=== PATIENT | female | born 1980 | race Caucasian/White ===

== ENCOUNTER 2024-06-23 19:04 | Emergency (ER) | payer BC ==
[2024-06-23] MEDS ORDERED: BUPIVACAINE 0.5% PF 10 ML VIAL ONE (20:18)
[2024-06-23] MEDS ORDERED: LIDOCAINE 1% 20 ML MDV ONE (20:18)
[2024-06-23] MEDS ORDERED: HYDROCODONE/APAP 7.5/325 MG TAB ONE (20:19)
[2024-06-23] MEDS ORDERED: IBUPROFEN 400 MG TAB ONE (20:19)
--- NOTE | 2024-06-23 21:13 | RAD REPORT ---
EXAMINATION: Foot Left 3 View VIEWS: Three views CLINICAL INDICATION: Female, 44 years old. toe injury COMPARISON: No prior exam. IMPRESSION: No acute fracture. Subluxed great toe nail per the clinical history. No radiopaque foreign body. No radiographic evidence of osteomyelitis.
--- NOTE | 2024-06-23 22:31 | ER ---
Nurse's Notes [facility] Name: Maria Ines Gonzales Age: 44 yrs Sex: Female : 1980 Arrival Date: 06/23/2024 Time: 19:04 Bed 21 Private MD: Diagnosis: Contusion of left great toe with damage to nail Presentation: 06/23 19:27 Chief complaint: Patient states: [place] lg3 Coronavirus screen: Client denies travel out of the [place] in the last 14 days. At this time, the client does not indicate any symptoms associated with coronavirus-19. Ebola Screen: No symptoms or risks identified at this time. Initial Sepsis Screen: Does the patient meet any 2 criteria? No. Patient's initial sepsis screen is negative. Does the patient have a suspected source of infection? No. Patient's initial sepsis screen is negative. Risk Assessment: Do you want to hurt yourself or someone else? Patient reports no desire to harm self or others. Onset of symptoms was June 23, 2024. 19:27 Method Of Arrival: Wheelchair lg3 19:27 Acuity: DEBBIE 4 lg3 Triage Assessment: 19:30 General: Appears in no apparent distress. uncomfortable, Behavior is calm, cooperative. lg3 Pain: Complains of pain in Left first toenail. EENT: No deficits noted. No signs and/or symptoms were reported regarding the EENT system. Neuro: No deficits noted. Velázquez Agitation-Sedation Scale (RASS): 0 - Alert and Calm Level of Consciousness is awake, alert, obeys commands, Oriented to person, place, time, situation. Cardiovascular: No deficits noted. Denies chest pain, shortness of breath, Capillary refill < 3 seconds Clubbing of nail beds is absent JVD is absent Patient's skin is warm and dry. Respiratory: No deficits noted. Airway is patent Respiratory effort is even, unlabored, Respiratory pattern is regular, symmetrical. GI: No deficits noted. No signs and/or symptoms were reported involving the gastrointestinal system. : No signs and/or symptoms were reported regarding the genitourinary system. Derm: Skin is intact, is healthy with good turgor, Skin is dry, Skin is normal, Skin temperature is warm Wound noted Left first toenail. Musculoskeletal: No deficits noted. No signs and/or symptoms reported regarding the musculoskeletal system. Circulation, motion, and sensation intact. Range of motion: intact in all extremities. 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 - Infectious Disease History:: Denies. - Social history:: Smoking status: Patient denies any tobacco usage or history of. Patient uses alcohol, occasionally. Patient/guardian denies using street drugs. Screenin:12 [facility] ED Fall Risk Assessment (Adult) History of falling in the last 3 months, kd4 including since admission No falls in past 3 months (0 pts) Confusion or Disorientation No (0 pts) Intoxicated or Sedated No (0 pts) Impaired Gait No (0 pts) Mobility Assist Device Used No (0 pt) Altered Elimination No (0 pt) Score/Fall Risk Level 0 - 2 = Low Risk. Abuse screen: Denies threats or abuse. 06/24 00:21 Nutritional screening: No deficits noted. Tuberculosis screening: No symptoms or risk kd4 factors identified. Assessment: 06/23 20:12 General: Appears in no apparent distress. Pain: Complains of pain in left big toe Pain kd4 currently is 9 out of 10 on a pain scale. Neuro: No deficits noted. Respiratory: No deficits noted. Denies. 06/24 00:17 General: wound cleaned and dressed per order , d/c instruction given with prescription, kd4 crutches and post op shoes provided, education provided on crutches , returned demonstration by patient. all belonging sent with patient.. 00:22 General: Patient states she is up to date on her tetanus vaccine. kd4 Vital Signs: 06/23 19:27 BP 128 / 102; Pulse 82; Resp 16 S; Temp 97.5(O); Pulse Ox 100% ; Weight 76.2 kg (R); lg3 Height 5 ft. 2 in. (R); Pain 8/10; 06/24 00:17 BP 122 / 72; Pulse 67; Resp 18; Temp 98.1; Pulse Ox 99% on R/A; Pain 3/10; kd4 06/23 19:27 Body Mass Index 30.73 (76.20 kg, 157.48 cm) lg3 06/23 19:27 Pain Scale: Adult lg3 06/24 00:17 Pain Scale: Adult kd4 Raisa Coma Score: 06/23 20:12 Eye Response: spontaneous(4). Motor Response: obeys commands(6). Verbal Response: kd4 oriented(5). Total: 15. Trauma Score (Adult): 20:12 Eye Response: spontaneous(1); Verbal Response: oriented(1); Motor Response: obeys kd4 commands(2); Systolic BP: > 89 mm Hg(4); Respiratory Rate: 10 to 29 per min(4); Lyndon Score: 15; Trauma Score: 12 ED Course: 19:07 Patient arrived in ED. im 19:11 Preet Ontiveros PA is PHCP. cp 19:11 Vin Stein MD is Attending Physician. cp 19:30 Triage completed. lg3 19:30 Arm band placed on left wrist. lg3 20:05 Glenn Tolbert, JACINTO is Primary Nurse. kd4 21:04 XRAY Foot LEFT 3 View In Process Unspecified. EDMS 06/24 00:20 No provider procedures requiring assistance completed. Patient did not have IV access kd4 during this emergency room visit. 00:21 Provided Education on: d/c instruction.. kd4 00:21 Patient has correct armband on for positive identification. Bed in low position. Call kd4 light in reach. Side rails up X2. Administered Medications: 06/23 20:22 Drug: Hydrocodone-Acetaminophen PO (7.5 mg-325 mg) 1 tabs PO once; RASS on ADMIN: kd4 Combtv4, Very Agttd3, Agttd2, Rstlss1, AlertClm0, Drwsy-1, Lt Sdtn-2, Mod Sdtn-3, Dp Sdtn-4, UnArsble-5 Route: PO; 20:51 Follow up: Response: No adverse reaction kd4 20:22 Drug: Ibuprofen PO 800 mg PO once Route: PO; kd4 20:53 Follow up: Response: No adverse reaction kd4 22:06 Drug: Lidocaine Infiltration (1 %) 10 ml 5 ml Infiltration once; to bedside {Note: By lyudmila Dennis} Volume: 5 ml; Route: Infiltration; 22:06 Drug: Bupivacaine Infiltration (0.5 %) 10 ml 10 ml Infiltration once {Note: By BOYD Dennis} Volume: 10 ml; Route: Infiltration; 22:40 Drug: Doxycycline PO 100 mg PO once Route: PO; kd4 23:57 Follow up: Response: No adverse reaction kd4 Medication: 06/24 00:22 VIS not applicable for this client. kd4 Outcome: 06/23 22:30 Discharge ordered by MD. nava 06/24 00:21 Discharged to home ambulatory, with crutches, with family, kd4 Condition: stable Discharge instructions given to patient, Instructed on discharge instructions, Prescriptions given X 4, 00:23 Patient left the ED. kd4 Signatures: Dispatcher [employer] EDMS Preet Ontiveros PA PA cp Able, Lacie RN RN lg3 Nette Jeffrey Karim RN RN kd4 Corrections: (The following items were deleted from the chart) 06/23 19:32 19:30 Home Meds: None; will neil3
--- NOTE | 2024-06-23 22:31 | EDPHYS ---
Physician Documentation [facility] Name: Maria Ines Gonzales Age: 44 yrs Sex: Female : 1980 Arrival Date: 06/23/2024 Time: 19:04 Bed 21 Private MD: ED Physician Vin Stein HPI: 06/23 20:05 This 44 yrs old Female presents to ER via Wheelchair with complaints of Toe Injury - cp big toe left foot, Pain. 20:05 The patient presents with an injury. cp 20:05 The complaints affect the left great toe. cp 20:05 Context: The problem was sustained beach, Mechanism of Injury: direct blow the patient cp can fully bear weight, the patient is able to ambulate, with moderate difficulty. 20:05 Onset: The symptoms/episode began/occurred just prior to arrival. Associated signs and cp symptoms: Pertinent positives: injury to nail. 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 - Infectious Disease History:: Denies. - Social history:: Smoking status: Patient denies any tobacco usage or history of. Patient uses alcohol, occasionally. Patient/guardian denies using street drugs. ROS: 20:10 MS/extremity: Positive for injury or acute deformity, pain, tenderness, of the left cp great toe, 20:10 Constitutional: Negative for body aches, chills, fever, cp 20:10 Cardiovascular: Negative for chest pain, 20:10 Respiratory: Negative for cough, shortness of breath, wheezing, 20:10 Abdomen/GI: Negative for abdominal pain, vomiting, diarrhea, constipation, 20:10 Back: Negative for pain at rest, pain with movement, 20:10 All other systems are negative, Exam: 20:15 Constitutional: The patient appears in no acute distress, alert, awake, well developed, cp well nourished, uncomfortable, 20:15 Head/Face: Normocephalic, atraumatic. cp 20:15 Musculoskeletal/extremity: Extremities: noted in the left great toe: pain, swelling, tenderness, partially avulsed nail, mild bleeding noted to nail bed, ROM: full active range of motion, in the left great toe, Perfusion: the extremity is pink, warm, Vital Signs: 19:27 BP 128 / 102; Pulse 82; Resp 16 S; Temp 97.5(O); Pulse Ox 100% ; Weight 76.2 kg (R); lg3 Height 5 ft. 2 in. (R); Pain 8/; 06/24 00:17 BP 122 / 72; Pulse 67; Resp 18; Temp 98.1; Pulse Ox 99% on R/A; Pain 05/14; kd4 06/23 19:27 Body Mass Index 30.73 (76.20 kg, 157.48 cm) 3 06/23 19:27 Pain Scale: Adult lg3 06/24 00:17 Pain Scale: Adult kd4 Raisa Coma Score: 06/23 20:12 Eye Response: spontaneous(4). Motor Response: obeys commands(6). Verbal Response: kd4 oriented(5). Total: 15. Trauma Score (Adult): 20:12 Eye Response: spontaneous(1); Verbal Response: oriented(1); Motor Response: obeys kd4 commands(2); Systolic BP: > 89 mm Hg(4); Respiratory Rate: 10 to 29 per min(4); Lancaster Score: 15; Trauma Score: 12 Procedures: 22:30 Performed nail removal: digital block performed using 8 cc mixture 1% lidocaine w/o epi cp and 0.5% marcaine. Nail removed using hemostats. Area irrigated with NS. Nail replaced and figure eight stitch placed using 3-0 Prolene. Area cleaned and dressed. MDM: 19:33 Medical Screening Exam initiated cp 20:30 Differential diagnosis: fracture, contusion, nail bed laceration, open fracture, nail cp avulsion. 22:30 Data reviewed: vital signs, nurses notes, radiologic studies, plain films, and as a cp result, I will discharge patient. 22:30 I considered the following discharge prescriptions or medication management in the emergency department Medications were administered in the Emergency Department. See MAR. 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 Response to treatment: the patient's symptoms have markedly improved after treatment, and as a result, I will discharge patient. 06/23 20:02 Order name: XRAY Foot LEFT 3 View; Complete Time: 21:19 cp 06/23 22:29 Order name: Post-op shoe; Complete Time: 00:18 cp 06/23 22:29 Order name: Crutches; Complete Time: 00:18 cp Administered Medications: 20:22 Drug: Hydrocodone-Acetaminophen PO (7.5 mg-325 mg) 1 tabs PO once; RASS on ADMIN: kd4 Combtv4, Very Agttd3, Agttd2, Rstlss1, AlertClm0, Drwsy-1, Lt Sdtn-2, Mod Sdtn-3, Dp Sdtn-4, UnArsble-5 Route: PO; 20:51 Follow up: Response: No adverse reaction kd4 20:22 Drug: Ibuprofen PO 800 mg PO once Route: PO; kd4 20:53 Follow up: Response: No adverse reaction kd4 22:06 Drug: Lidocaine Infiltration (1 %) 10 ml 5 ml Infiltration once; to bedside {Note: By lyudmila Dennis} Volume: 5 ml; Route: Infiltration; 22:06 Drug: Bupivacaine Infiltration (0.5 %) 10 ml 10 ml Infiltration once {Note: By BOYD Dennis} Volume: 10 ml; Route: Infiltration; 22:40 Drug: Doxycycline PO 100 mg PO once Route: PO; kd4 23:57 Follow up: Response: No adverse reaction kd4 Disposition: 06/24 23:58 Chart complete. cp Disposition Summary: 06/23/24 22:30 Discharge Ordered Notes: Location: Home cp Problem: new cp Symptoms: have improved cp Condition: Stable cp Diagnosis - Contusion of left great toe with damage to nail cp Followup: cp - With: Private Physician - When: 10 - 14 days - Reason: Wound Recheck, Staple/Suture removal, Re-evaluation by your physician Discharge Instructions: - Discharge Summary Sheet cp - Foot Contusion cp - Nail Avulsion cp Forms: - Medication Reconciliation Form cp - Antibiotic Education cp - Prescription Opioid Use cp - Patient Portal Instructions cp - Leadership Thank You Letter cp Prescriptions: - mupirocin 2 % Topical ointment - apply 1 application TOPICAL route 3 times per day; 15 gram tube; Refills: 0, cp Product Selection Permitted - Anaprox DS 550 mg Oral Tablet - take 1 tablet ORAL route every 12 hours As needed; 20 tablet; Refills: 0, cp Product Selection Permitted - Diflucan 150 mg Oral tablet - take 1 tablet ORAL route one time for 1 day may repeat if symptoms continue; 2 cp tablet; Refills: 0, Product Selection Permitted - Doxycycline Monohydrate 100 mg Oral Tablet - take 1 tablet ORAL route every 12 hours for 10 days; 20 tablet; Refills: 0, cp Product Selection Permitted Addendum: 06/26/2024 20:08 Co-signature as Attending Physician, Vin Stein MD I agree with the assessment s p4 and plan of care. I reviewed the patient's care provided by the Advanced Practice Provider and agree with the diagnosis and treatment plan. Signatures: Dispatcher [employer] EDMS Preet Ontiveros PA PA cp Able, Lacie, RN RN lg3 Vin Stein MD MD sp4 Glenn Tolbert RN RN kd4 Corrections: (The following items were deleted from the chart) 06/23 19:32 19:30 Home Meds: None; lg3 lg3 06/24 23:51 06/23 20:05 Associated signs and symptoms: Pertinent positives: avulsed nail, cp cp 06/24 23:58 23:55 Performed nail removal: digital block performed using 8 cc mixture 1% lidocaine cp w/o epi and 0.5% marcaine. Nail removed using hemostats. Area irrigated with NS. Nail replaced and figure eight stitch placed using 3-0 Prolene. Area cleaned and dressed. cp
[2024-06-23] MEDS ORDERED: DOXYCYCLINE 100 MG CAP PO ONE (22:39)
[2024-06-24 00:47] VITALS: BP 122/72; TEMP 98.1; O2SAT 99
== END 2024-06-24 00:23 | disposition home or self-care (01) ==
LOC: ER 19:04
PROC: 0HQRXZZ Repair Toe Nail, External Approach (ICD-10-PCS; principal; 2024-06-24)
DX: S90.212A Contusion of left great toe with damage to nail, initial encounter (principal)
CPT/HCPCS: 73630; 99283; 11760; J2003